=== PATIENT | male | born 1990 | race Hispanic/Latino ===

== ENCOUNTER 2019-10-01 | Emergency (ER) | payer OTHER ==
[2019-10-01] MEDS ORDERED: MUPIROCIN2 % EX (10:05)
== END 2019-10-01 10:25 | disposition home or self-care (01) | DRG 605 ==
DX: S31.114A Laceration without foreign body of abdominal wall, left lower quadrant without penetration into peritoneal cavity, initial encounter (principal); W22.8XXA Striking against or struck by other objects, initial encounter; Y93.89 Activity, other specified; Y92.74 Orchard as the place of occurrence of the external cause; Y99.0 Civilian activity done for income or pay